=== PATIENT | male | born 1985 | race Caucasian/White ===

== ENCOUNTER 2017-08-04 17:22 | Emergency (ER) | payer OTHER ==
[2017-08-04] MEDS: KETOROLAC 60 MG INJ IM (18:33)
== END 2017-08-04 18:57 | disposition home or self-care (01) ==
LOC: FTE 17:22
DX: M79.605 Pain in left leg (principal); I10 Essential (primary) hypertension
CPT/HCPCS: 96372; 99284-25

== ENCOUNTER 2018-10-12 15:25 | Emergency (ER) | payer OTHER ==
[2018-10-12] MEDS: IBUPROFEN 800 MG TAB PO (16:18)
== END 2018-10-12 16:42 | disposition home or self-care (01) ==
LOC: FTE 16:42
DX: M54.2 Cervicalgia (principal); I10 Essential (primary) hypertension
CPT/HCPCS: 99283; Z7502